=== PATIENT | male | born 1975 | race Caucasian/White ===

== ENCOUNTER 2016-11-05 14:11 | Emergency (ER) | payer BC ==
[~2016-11-05] VITALS: Ht 165.1 cm; Wt 62.0 kg
[2016-11-05 14:20] VITALS: Ht 165.1 cm; Wt 62.0 kg
--- NOTE | 2016-11-05 14:50 | ERD ---
ER Documentation Chief Complaint Date/Time DATE: 11/05/16 TIME: 14:47 Chief Complaint PT present with back pain, fell from height of 8 feet and landed on a lap. HPI 41-year-old male complaining of back pain after a fall. 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 They were planting on a steep hill side. He went up a rope without his safety equipment. He was on his way down to retrieve his safety equipment when his left and fell. He said he fell about a feet, landing on his back, and on a landscaping light. Is complaining pain in the left mid back. He also has pain when he is taking a deep breath. Denies hitting his head in the fall. Denies neck pain. Denies any other injuries. ROS All systems reviewed and are negative except as per history of present illness. Medications Home Meds Active Scripts Cyclobenzaprine Hcl* (Cyclobenzaprine Hcl*) 10 Mg Tablet, 10 MG PO TID Y for MUSCLE SPASMS, #15 TAB Prov:CHRISTOPHE HE. BRICK BURNER 11/05/16 Ibuprofen* (Motrin*) 800 Mg Tab, 800 MG PO Q6H Y for PAIN AND OR ELEVATED TEMP, #30 TAB Prov:CHRISTOPHE HE. BRICK BURNER 11/05/16 PMhx/Soc Medical and Surgical Hx: pt denies Medical Hx, pt denies Surgical Hx History of Surgery: No Anesthesia Reaction: No Hx Neurological Disorder: No Hx Respiratory Disorders: No Hx Cardiac Disorders: No Hx Psychiatric Problems: No Hx Miscellaneous Medical Probl: No Hx Alcohol Use: No Hx Substance Use: No Hx Tobacco Use: No Smoking Status: Never smoker Physical Exam Vitals Vital Signs Date Time Temp Pulse Resp B/P Pulse Ox O2 Delivery O2 Flow Rate FiO2 11/05/16 14:20 98.5 82 14 117/73 100 Physical Exam General: Patient is well-developed. Awake, alert, and conversant, in no apparent distress Skin: Warm and dry Head: Normocephalic, atraumatic without palpable deformities Eyes: Pupils equal, round, and reactive to light. Extraocular movements intact. No periorbital ecchymosis or step-off Chest: No surface trauma. Nontender without crepitus or deformity. No palpable subcutaneous air. Lungs have good tidal volume, lungs clear to auscultate bilaterally Heart: Regular rate and rhythm. No murmur, rub, or gallop Back: A 20 cm area of contusion noted in the left mid back, tender to palpation. There is also left rib tenderness on the lateral aspect at approximately T10. Nontender without step-off or deformity to firm midline palpation. No CVA tenderness or flank ecchymosis Extremities: No surface trauma. Full range of motion without limitation or pain. Good strength in all extremities. Sensation to light touch intact. All peripheral pulses are intact and equal Neuro: Alert and oriented 4, GCS 15, cranial nerves II through XII intact. Motor and sensory exam is nonfocal. Reflexes are symmetric Results 24 hrs Current Medications Medications (Trade) Dose Ordered Sig/Viktor Route PRN Reason Start Time Stop Time Status Last Admin Dose Admin Ibuprofen (Motrin) 800 mg ONCE ONCE PO 11/05/16 15:00 11/05/16 15:01 DC 11/05/16 15:04 PROCEDURE: Xray left ribs and chest. CLINICAL INDICATION: Trauma due to a fall. Left rib pain. TECHNIQUE: 5 views of the left ribs and frontal chest radiograph were obtained. Total of 6 views. COMPARISON: None available FINDINGS: The osseous structures and surrounding soft tissues of the left rib cage are intact. No acute fracture is seen. No radiopaque foreign body is identified. The lungs are clear. The heart size is normal. There is no pleural effusion or pneumothorax. IMPRESSION: 1. Unremarkable left ribs x-ray series. 2. Unremarkable frontal chest radiograph. RPTAT: QQ .Rk Rojas MD, MD Date Time Electronically viewed and signed by .Rk Rojas MD, on 11/05/2016 16:32 .R/ CC: CHRISTOPHE HE BRICK BURNER Procedures/MDM Well-appearing 41-year-old male present ED with back pain after a fall. X-ray of the left ribs is unremarkable. No rib fracture, pleural effusion, or pneumothorax is seen. Patient does have a contusion of his left mid back. Patient advised to rest and follow-up with his PCP. Patient appears well, stable for discharge and outpatient management. Medical decision making shared with patient and family. Education provided to patient and family. Patient and family expressed understanding of the plan. Medications on discharge: Ibuprofen, Flexeril. Follow-up: Primary care provider in 2-3 days or return to ED if worse. Disclaimer: Inadvertent spelling and grammatical errors are likely due to EHR/ dictation software use and do not reflect on the overall quality of patient care. Also, please note that the electronic time recorded on this note does not necessarily reflect the actual time of the patient encounter. Departure Diagnosis: Primary Impression: Contusion, back Encounter type: initial encounter Laterality: left Qualified Code: S20.222A - Contusion of left side of back, initial encounter Additional Impression: Fall Encounter type: initial encounter Qualified Code: W19.XXXA - Fall, initial encounter Condition: Stable CHRISTOPHE HE NP Nov 05, 2016 14:50
[2016-11-05] MEDS ORDERED: IBUPROFEN 800 MG TAB PO ONE (15:00)
--- NOTE | 2016-11-05 16:33 | RADRPT ---
PROCEDURE: Xray left ribs and chest. CLINICAL INDICATION: Trauma due to a fall. Left rib pain. TECHNIQUE: 5 views of the left ribs and frontal chest radiograph were obtained. Total of 6 views. COMPARISON: None available FINDINGS: The osseous structures and surrounding soft tissues of the left rib cage are intact. No acute fracture is seen. No radiopaque foreign body is identified. The lungs are clear. The heart size is normal. There is no pleural effusion or pneumothorax. IMPRESSION: 1. Unremarkable left ribs x-ray series. 2. Unremarkable frontal chest radiograph. RPTAT: QQ .Rk Rojas MD, MD Date Time Electronically viewed and signed by .Rk Rojas MD, on 11/05/2016 16:32 .R/
[2016-11-05] MEDS ORDERED: CYCL-319 PO (16:42)
[2016-11-05] MEDS ORDERED: IBUP800T25 PO (16:42)
== END 2016-11-05 16:55 | disposition home or self-care (01) ==
LOC: FTE 14:11
DX: S20.222A Contusion of left back wall of thorax, initial encounter (principal); W17.89XA Other fall from one level to another, initial encounter; Y92.9 Unspecified place or not applicable
CPT/HCPCS: 71100

== ENCOUNTER 2017-04-06 07:08 | Emergency (ER) | END 2017-04-06 10:06 | disposition home or self-care (01) ==